=== PATIENT | male | born 1965 | race Caucasian/White ===

== ENCOUNTER 2016-11-18 19:54 | Emergency (ER) | payer SELFPAY ==
[~2016-11-18] VITALS: Ht 177.8 cm; Wt 77.1 kg
[2016-11-18 20:12] VITALS: BP 124/87
[2016-11-18] MEDS ORDERED: HYDROCODONE/APAP 10/325MG 1 EA TABLET PO ONE (21:00)
[2016-11-18] MEDS ORDERED: KETOROLAC TROMETHAMINE INJ 60 MG/2 ML VIAL IM ONE (21:00)
[2016-11-18] MEDS ORDERED: ONDANSETRON 4 MG TAB.RAPDIS SL ONE (21:00)
[2016-11-18] MEDS ORDERED: DEXAMETHASONE SOD PHOSPHATE 4 MG/ML VIAL IM ONE (21:00)
[2016-11-18] MEDS ORDERED: IBUPROFEN 600 MG TABLET PO ONE ×2 (21:19→21:30)
== END 2016-11-18 23:29 | disposition home or self-care (01) ==
LOC: ER 20:02
DX: M25.561 Pain in right knee (principal); R60.0 Localized edema; G89.29 Other chronic pain; Z59.0 Homelessness
CPT/HCPCS: 93971; 99284; A4606; Z7610

== ENCOUNTER 2016-11-19 12:24 | Emergency (ER) | payer SELFPAY ==
[~2016-11-19] VITALS: Ht 177.8 cm; Wt 77.1 kg
[2016-11-19 12:29] VITALS: BP 121/71
[2016-11-19] MEDS ORDERED: KETOROLAC TROMETHAMINE INJ 30 MG/ML VIAL ONE (12:55)
[2016-11-19] MEDS ORDERED: ACETAMINOPHEN W/ CODEINE#3 1 EA TABLET ONE (12:55)
[2016-11-19] MEDS ORDERED: KETOROLAC TROMETHAMINE INJ 30 MG/ML VIAL IM ONE (13:00)
[2016-11-19] MEDS ORDERED: ACETAMINOPHEN W/ CODEINE#3 1 EA TABLET PO ONE (13:00)
== END 2016-11-19 13:44 | disposition home or self-care (01) ==
LOC: ER 12:25
DX: M25.561 Pain in right knee (principal); M25.511 Pain in right shoulder
CPT/HCPCS: 96372; 99283; A4606; J1885; Z7610

== ENCOUNTER 2018-03-30 22:00 | Emergency (ER) | payer MEDICAID ==
[~2018-03-30] VITALS: Ht 177.8 cm; Wt 77.1 kg
[2018-03-30 22:21] VITALS: BP 114/74
== END 2018-03-30 22:56 | disposition home or self-care (01) ==
LOC: ER 22:04
DX: M25.561 Pain in right knee (principal); M25.511 Pain in right shoulder; F41.9 Anxiety disorder, unspecified; Z98.890 Other specified postprocedural states
CPT/HCPCS: 99282; A4606; Z7610

== ENCOUNTER 2018-04-05 23:19 | Emergency (ER) | payer MEDICAID ==
[~2018-04-05] VITALS: Ht 177.8 cm; Wt 77.1 kg
[2018-04-05 23:36] VITALS: BP 103/70
[2018-04-06] MEDS ORDERED: HYDROCODONE/APAP 10/325MG 1 EA TABLET PO ONE
--- NOTE | 2018-04-06 00:02 | NUR ---
XRAY AT BEDSIDE.
[2018-04-06] MEDS ORDERED: HYDROCODONE/APAP 10/325MG 1 EA TABLET ONE (00:03)
--- NOTE | 2018-04-06 02:11 | NUR ---
MD AT BEDSIDE SPEAKING WITH PATIENT.
== END 2018-04-06 02:14 | disposition home or self-care (01) ==
LOC: ER 23:19
DX: M25.511 Pain in right shoulder (principal); G89.29 Other chronic pain; Z59.0 Homelessness
CPT/HCPCS: 29105; 73060; 99284; A4606; Z7610

== ENCOUNTER 2018-04-07 06:32 | Emergency (ER) | payer MEDICAID ==
[~2018-04-07] VITALS: Ht 175.3 cm; Wt 72.6 kg
[2018-04-07 06:35] VITALS: BP 114/61
[2018-04-07] MEDS ORDERED: ALPRAZOLAM 0.25 MG TABLET ONE (06:58)
[2018-04-07] MEDS ORDERED: ALPRAZOLAM 0.25 MG TABLET PO ONE (07:00)
== END 2018-04-07 07:29 | disposition home or self-care (01) ==
LOC: ER 06:32
DX: F41.9 Anxiety disorder, unspecified (principal); F20.0 Paranoid schizophrenia; Z59.0 Homelessness; Z88.5 Allergy status to narcotic agent; Z88.8 Allergy status to other drugs, medicaments and biological substances
CPT/HCPCS: 99284; A4606; Z7610

== ENCOUNTER 2018-04-11 08:33 | Emergency (ER) | payer MEDICAID ==
[~2018-04-11] VITALS: Ht 177.8 cm; Wt 75.7 kg
[2018-04-11 08:33] VITALS: BP 111/80
[2018-04-11] MEDS ORDERED: LORAZEPAM 1 MG TABLET PO ONE (09:00)
[2018-04-11] MEDS ORDERED: LORAZEPAM 1 MG TABLET ONE (09:06)
== END 2018-04-11 09:49 | disposition home or self-care (01) ==
LOC: ER 08:34
DX: F41.9 Anxiety disorder, unspecified (principal); F31.9 Bipolar disorder, unspecified; F20.0 Paranoid schizophrenia; Z88.6 Allergy status to analgesic agent
CPT/HCPCS: 99284; A4606; Z7610

== ENCOUNTER 2018-04-16 05:04 | Emergency (ER) | payer MEDICAID ==
[~2018-04-16] VITALS: Ht 177.8 cm; Wt 77.1 kg
[2018-04-16 05:17] VITALS: BP 132/95
== END 2018-04-16 06:27 | disposition home or self-care (01) ==
LOC: ER 05:08
DX: F41.9 Anxiety disorder, unspecified (principal); F20.0 Paranoid schizophrenia; Z88.6 Allergy status to analgesic agent
CPT/HCPCS: A4606; Z7610

== ENCOUNTER 2018-04-17 01:43 | Emergency (ER) | payer MEDICAID ==
[~2018-04-17] VITALS: Ht 175.3 cm; Wt 70.8 kg
[2018-04-17 01:50] VITALS: BP 105/72
== END 2018-04-17 02:23 | disposition home or self-care (01) ==
LOC: ER 01:47
DX: L55.0 Sunburn of first degree (principal); F41.9 Anxiety disorder, unspecified; F20.0 Paranoid schizophrenia; Z88.6 Allergy status to analgesic agent
CPT/HCPCS: 99281; A4606; Z7610; Z7502

== ENCOUNTER 2019-04-26 20:25 | Emergency (ER) | payer SELFPAY ==
[~2019-04-26] VITALS: Ht 177.8 cm; Wt 86.2 kg
[2019-04-26 21:43] VITALS: BP 121/69
[2019-04-26] MEDS ORDERED: ACETAMINOPHEN 325 MG TABLET PO ONE (22:30)
--- NOTE | 2019-04-26 22:38 | NUR ---
PT LEFT WITHOUT BEING TREATED. ERMD NOTIFIED
== END 2019-04-26 22:42 | disposition left against medical advice (07) ==
LOC: ER 20:30
DX: M25.561 Pain in right knee (principal); M25.511 Pain in right shoulder; F41.9 Anxiety disorder, unspecified; F20.0 Paranoid schizophrenia; Z88.6 Allergy status to analgesic agent; W01.0XXA Fall on same level from slipping, tripping and stumbling without subsequent striking against object, initial encounter; Y93.89 Activity, other specified; Y92.89 Other specified places as the place of occurrence of the external cause; Y99.8 Other external cause status

== ENCOUNTER 2019-05-10 19:50 | Emergency (ER) | payer SELFPAY ==
[~2019-05-10] VITALS: Ht 177.8 cm; Wt 86.2 kg
[2019-05-10 20:21] VITALS: BP 126/69
[2019-05-10] MEDS ORDERED: DIAZEPAM 5 MG TABLET PO ONE (22:00)
[2019-05-10] MEDS ORDERED: DIAZEPAM 5 MG TABLET ONE (22:03)
== END 2019-05-10 22:10 | disposition home or self-care (01) ==
LOC: ER 19:54
DX: F20.0 Paranoid schizophrenia (principal); F41.9 Anxiety disorder, unspecified; Z88.6 Allergy status to analgesic agent

== ENCOUNTER 2020-02-14 21:00 | Emergency (ER) | payer MEDICAID ==
[~2020-02-14] VITALS: Ht 177.8 cm; Wt 86.2 kg
[2020-02-14 21:56] VITALS: BP 140/68
[2020-02-14] MEDS ORDERED: HYDROCODONE/APAP 5/325MG 1 EACH TABLET ONE (22:56)
[2020-02-14] MEDS ORDERED: HYDROCODONE/APAP 5/325MG 1 EACH TABLET PO ONE (23:00)
== END 2020-02-14 23:41 | disposition home or self-care (01) ==
LOC: ER 21:01
DX: M25.511 Pain in right shoulder (principal); Z88.6 Allergy status to analgesic agent; Z98.890 Other specified postprocedural states
CPT/HCPCS: 73030; 99283; J7030

== ENCOUNTER 2020-02-15 21:58 | Emergency (ER) | payer MEDICAID ==
[~2020-02-15] VITALS: Ht 177.8 cm; Wt 86.2 kg
[2020-02-15 21:58] VITALS: BP 114/67
== END 2020-02-15 22:46 | disposition home or self-care (01) ==
LOC: ER 22:00
DX: F41.9 Anxiety disorder, unspecified (principal); F20.0 Paranoid schizophrenia; Z88.6 Allergy status to analgesic agent; Z76.0 Encounter for issue of repeat prescription

== ENCOUNTER 2020-07-31 08:32 | Emergency (ER) | payer BC ==
[~2020-07-31] VITALS: Ht 167.6 cm; Wt 86.2 kg
[2020-07-31 08:36] VITALS: BP 129/71
[2020-07-31] MEDS ORDERED: HYDROCODONE/APAP 5/325MG TABLET ONE (08:45)
--- NOTE | 2020-07-31 08:55 | NUR ---
Patient given written and verbal discharge instructions. Patient verbalizes understanding of instructions. Patient is ambulatory with steady gait. Refuses offer of retirement placement. Patient given list of available shelters in surrounding area.
[2020-07-31] MEDS ORDERED: HYDROCODONE/APAP 5/325MG TABLET PO ONE (09:00)
== END 2020-07-31 08:57 | disposition home or self-care (01) ==
LOC: ER 08:35
DX: G89.29 Other chronic pain (principal); M25.561 Pain in right knee; F41.9 Anxiety disorder, unspecified; F20.0 Paranoid schizophrenia; Z98.890 Other specified postprocedural states; Z88.6 Allergy status to analgesic agent

== ENCOUNTER 2020-08-02 06:21 | Emergency (ER) | payer BC ==
[~2020-08-02] VITALS: Ht 177.8 cm; Wt 86.2 kg
[2020-08-02 06:24] VITALS: BP 113/73
[2020-08-02] MEDS ORDERED: LORAZEPAM 0.5 MG TABLET ONE (06:40)
[2020-08-02] MEDS ORDERED: LORAZEPAM 1 MG TABLET PO ONE (07:00)
== END 2020-08-02 06:46 | disposition home or self-care (01) ==
LOC: ER 06:21
DX: F41.9 Anxiety disorder, unspecified (principal); Z76.0 Encounter for issue of repeat prescription; F20.0 Paranoid schizophrenia; Z98.890 Other specified postprocedural states; Z88.6 Allergy status to analgesic agent

== ENCOUNTER 2021-11-23 13:04 | Emergency (ER) | payer SELFPAY ==
[~2021-11-23] VITALS: Ht 177.8 cm; Wt 81.6 kg
[2021-11-23 13:13] VITALS: BP 111/70
[2021-11-23] MEDS ORDERED: IBUP-1955 PO (13:40)
[2021-11-23] MEDS ORDERED: HYDR-4303 PO ×2 (13:40→13:49)
[2021-11-23] MEDS ORDERED: METH-647 PO (13:40)
--- NOTE | 2021-11-23 13:56 | NUR ---
Patient discharged to home in stable condition. Written and verbal after care instructions given. Patient verbalizes understanding of instruction.
== END 2021-11-23 13:56 | disposition home or self-care (01) ==
LOC: ER 13:18
DX: M25.511 Pain in right shoulder (principal); G89.29 Other chronic pain; Z76.0 Encounter for issue of repeat prescription; F41.9 Anxiety disorder, unspecified; F20.0 Paranoid schizophrenia; M19.90 Unspecified osteoarthritis, unspecified site; Z98.890 Other specified postprocedural states; Z88.6 Allergy status to analgesic agent; Z79.899 Other long term (current) drug therapy

== ENCOUNTER 2021-12-17 20:14 | Emergency (ER) | payer SELFPAY ==
[~2021-12-17] VITALS: Ht 177.8 cm; Wt 77.1 kg
[~2021-12-17 20:14] MED LIST: HYDR-4303 PO; IBUP-1955 PO; METH-647 PO
--- NOTE | 2021-12-17 21:08 | NUR ---
CALLED FOR TRIAGE, NO ANSWER
[2021-12-17 21:09] VITALS: BP 103/58
--- NOTE | 2021-12-17 21:28 | NUR ---
MD SPEAKING WITH PT
[2021-12-17] MEDS ORDERED: RISP1TAB97 PO (22:02)
[2021-12-17] MEDS ORDERED: LORA-259 PO (22:02)
--- NOTE | 2021-12-17 22:11 | NUR ---
SANDWICH GIVEN TO PATIENT
[2021-12-17] MEDS ORDERED: LORAZEPAM 0.5 MG TABLET ONE (22:13)
--- NOTE | 2021-12-17 22:15 | NUR ---
Patient discharged to home in stable condition. Written and verbal after care instructions given. Patient verbalizes understanding of instruction.
[2021-12-17] MEDS ORDERED: LORAZEPAM 1 MG TABLET PO ONE (22:30)
== END 2021-12-17 22:16 | disposition home or self-care (01) ==
LOC: ER 20:16
DX: F41.9 Anxiety disorder, unspecified (principal); F20.0 Paranoid schizophrenia; Z76.0 Encounter for issue of repeat prescription; M19.90 Unspecified osteoarthritis, unspecified site; Z98.890 Other specified postprocedural states; Z88.8 Allergy status to other drugs, medicaments and biological substances; Z88.6 Allergy status to analgesic agent; Z79.899 Other long term (current) drug therapy

== ENCOUNTER 2022-10-13 13:48 | Emergency (ER) | payer SELFPAY ==
[~2022-10-13] VITALS: Ht 177.8 cm; Wt 81.6 kg
[~2022-10-13 13:48] MED LIST changes: +LORA-259 PO; +RISP1TAB97 PO
--- NOTE | 2022-10-13 14:08 | NUR ---
C/O RIGHT SHOULDER PAIN SINCE LAST NIGHT. S/P SURGERY 3 YEARS AGO.PT DENIES TRAUMA. PT PLACED IN ROOM 19, AAOX4, BREATHING EVEN AND UNLABORED. AWAITING MD ORDERS.
[2022-10-13] MEDS ORDERED: LIDO30AD10 TP (14:13)
--- NOTE | 2022-10-13 14:20 | NUR ---
Patient discharged to home in stable condition. Written and verbal after care instructions given. Patient verbalizes understanding of instruction.
[2022-10-13] MEDS ORDERED: HYDROCODONE/APAP 10/325MG TABLET ONE (14:22)
[2022-10-13] MEDS ORDERED: HYDROCODONE/APAP 10/325MG TABLET PO ONE (14:30)
[2022-10-13 17:22] VITALS: BP 118/60
== END 2022-10-13 17:25 | disposition home or self-care (01) ==
LOC: ER 13:52
DX: M25.511 Pain in right shoulder (principal); M19.90 Unspecified osteoarthritis, unspecified site; F41.9 Anxiety disorder, unspecified; F20.0 Paranoid schizophrenia; Z88.8 Allergy status to other drugs, medicaments and biological substances; Z79.899 Other long term (current) drug therapy